=== PATIENT | male | born 2000 | race Hispanic/Latino ===

== ENCOUNTER 2020-01-08 05:11 | Emergency (ER) | payer OTHER ==
[~2020-01-08] VITALS: Ht 165.1 cm; Wt 90.7 kg
[2020-01-08] MEDS ORDERED: METHYLPREDNISOLONE SOD SUCC 125 MG/2ML VIAL IM ONE (05:45)
[2020-01-08] MEDS ORDERED: FAMOTIDINE 20 MG TAB PO ONE (05:45)
[2020-01-08] MEDS ORDERED: DIPHENHYDRAMINE HCL 25 MG CAP PO ONE (05:45)
== END 2020-01-08 06:55 | disposition home or self-care (01) ==
LOC: ER 05:28
DX: R21 Rash and other nonspecific skin eruption (principal); T78.40XA Allergy, unspecified, initial encounter; E11.9 Type 2 diabetes mellitus without complications
CPT/HCPCS: 96372; 99282; J2930